=== PATIENT | male | born 1990 | race African-American/Black ===

== ENCOUNTER 2020-07-30 10:22 | Outpatient (REF) | payer MEDICAID, SELFPAY ==
--- NOTE | ~2020-07-30 | XR_ITS ---
EXAMINATION: XR CHEST CLINICAL INFORMATION: Chest pain on breathing COMPARISON: Chest radiograph from 03/10/2019 TECHNIQUE: 2 views of the chest were obtained. FINDINGS: No focal consolidation. No pneumothorax. Trachea is midline. Cardiac mediastinal silhouette is not enlarged. No large pleural effusion. Osseous structures are intact. Soft tissues are unremarkable. XR/XR chest 2V IMPRESSION: No acute cardiopulmonary process.
== END 2020-07-30 10:23 | disposition home or self-care (01) ==
LOC: HO.XRAY 10:22
PROVIDERS: PCP Internal Medicine Geriatric Medicine; Referring Provider Internal Medicine Geriatric Medicine; Visit Provider Emergency Medicine
DX: R07.89 Other chest pain (principal); R07.1 Chest pain on breathing
CPT/HCPCS: 71046

== ENCOUNTER 2020-08-13 08:45 | Outpatient (REF) | payer MEDICAID, SELFPAY ==
--- NOTE | 2020-08-13 | PFT_ITS ---
INDICATION: Chest pain. SPIROMETRY: The FEV1 to FVC of 88% with an FEV1 of 5.61 L, which is 109% predicted, and an FVC of 6.37 L, which is 103% predicted. No significant response to bronchodilators noted. Maximum voluntary ventilation 97% predicted. LUNG VOLUMES: Total lung capacity 97% predicted. DIFFUSION CAPACITY: DLCO 81% predicted. COMPARISONS: None. INTERPRETATION: No obstructive nor restrictive ventilatory defects identified. No significant response to bronchodilators noted. Normal maximum voluntary ventilation. Normal lung volumes. The patient has a low normal diffusion capacity. If asthma is in the differential, methacholine challenge will be reasonable to assess for hyperreactive airways, otherwise no clear explanation for his ongoing chest pain based on these pulmonary function studies. MD HEATHER English/MODDm / [id number]
== END 2020-08-13 08:46 | disposition home or self-care (01) ==
LOC: HO.RESP 08:45
PROVIDERS: PCP Internal Medicine Geriatric Medicine; Visit Provider Emergency Medicine
DX: R07.1 Chest pain on breathing (principal)
CPT/HCPCS: 94060; 94727; 94729